=== PATIENT | male | born 1965 | race Hispanic/Latino ===

== ENCOUNTER 2024-09-17 08:45 | Outpatient (CLI) | payer BC | END 2024-09-17 08:46 | disposition home or self-care (01) | LOC: SCSMRI 08:45 | PROVIDERS: ATTEND Family Medicine | DX: D48.7 Neoplasm of uncertain behavior of other specified sites (principal); M48.061 Spinal stenosis, lumbar region without neurogenic claudication; M48.07 Spinal stenosis, lumbosacral region | CPT/HCPCS: 72158 ==